=== PATIENT | female | born 1995 | race Caucasian/White ===

== ENCOUNTER → 2020-11-30 13:45 | Outpatient (BNVA) | payer SELFPAY | PROVIDERS: Family Provider Nurse Practitioner; Visit Provider Obstetrics & Gynecology | DX: Z12.4 Encounter for screening for malignant neoplasm of cervix (principal) | CPT/HCPCS: 88175 ==

== ENCOUNTER 2021-12-15 16:37 | Emergency (ER) | payer MEDICAID, SELFPAY ==
[2021-12-15 17:06] VITALS: BP 125/87; PULSE 64; RESP 18; TEMP 36.7; O2SAT 98; BMI 32.4
--- NOTE | 2021-12-15 17:22 | USR_ITS ---
PROCEDURE INFORMATION: Exam: US , Limited Exam date and time: 12/15/2021 5:22 PM Age: 26 years old Clinical indication: complicated by abdominal or pelvic pain; Lower; Second trimester (14 weeks 0 days to 27 weeks 6 days); Gestational age or lmp: 17 w 6 fritz; ; Additional info: Pelvic pain, 18 weeks TECHNIQUE: Imaging protocol: Real-time ultrasound of the maternal uterus with image documentation. Exam focused on the clinical indication. COMPARISON: US OB >14 Weeks [id number] 08/22/2018 9:32 AM FINDINGS: Gestation: Single intrauterine gestation. heart rate: 160 bpm. presentation: Transverse presentation. Placenta: Anterior grade 0 placenta. Amniotic fluid index: 11.3 cm. BIOMETRY: Estimated due date (AUA): 05/19/2022. Gestational age (AUA): 17 weeks 6 days Femur length (FL): 2.60 cm, MATERNAL: Cervix: The cervix is closed and measures 5.4 cm in length. There is some shadowing through the posterior cervix. US/US OB limited [id number] IMPRESSION: 1. Single viable intrauterine gestation estimated at 17 weeks 6 days. 2. No abnormality identified.
--- NOTE | 2021-12-15 17:23 | ED_ITS ---
HPI - Abdominal Pain General: Chief Complaint: Abdominal Pain Stated Complaint: 18 WKS PREG CRAMPING FOR PAST WK Time Seen by Provider: 12/15/21 17:13 History of Present Illness: 26-year-old female comes in today with pelvic pain and pressure for the last 5 days. Patient reports severe pain at times. Patient is 18 weeks . Patient denies any chronic medical problems. Patient takes no routine medications except vitamin. Patient denies any vaginal discharge or bleeding. Patient is had 2 other pregnancies with 2 live births. Related Data: Date of Last Menstrual Period: 08/09/21 Review of Systems GI: Reports: abdominal pain [facility] ED PFS: Medical History (Updated 12/15/21 @ 18:41 by CHARLIE Denny) No pertinent past medical history Patient denies history of: diabetes, asthma, hypertension, seizures, DVT/PE PCP: Uses Walk in services at [facility] Rhus dermatitis Rhus dermatitis Upper respiratory infection Surgical History No history of previous surgery Family History Family/Other Diabetes paternal aunt Thyroid condition cousin Father Hypertension Grandfather Hypertension maternal Heart disease maternal Mother Thyroid condition Denies family history of Colon cancer Ovarian cancer Hyperlipidemia Breast cancer Uterine cancer Stroke Social History Smoking and tobacco status: never smoked Alcohol intake: never Female Reproductive History: Date of last menstrual period: 08/09/21 Physical Exam Const: COMMON NORMALS: alert HENMT: COMMON NORMALS: normocephalic HEAD & SCALP: normocephalic Resp: COMMON NORMALS: normal respiratory effort and clear to auscultation bilaterally AUSCULTATION: clear to auscultation bilaterally Cardio: COMMON NORMALS: regular rate and regular rhythm RATE: regular rate RHYTHM: regular rhythm GI: COMMON NORMALS: Soft to palpation and non-tender AUSCULTATION: Yes normoactive bowel sounds PALPATION: Yes Soft to palpation : COMMON NORMALS: Yes no CVA tenderness BLADDER/KIDNEY EXAM: Yes no CVA tenderness Back/Pelvis: COMMON NORMALS: no CVA tenderness Extremity: COMMON NORMALS: normal to inspection and no pedal edema Neuro: SENSORIUM/ORIENTATION: Yes alert Psych: COMMON NORMALS: cooperative Skin: COMMON NORMALS: no rashes or lesions noted GENERAL SKIN EXAM: no rashes or lesions noted Course Vital Signs: Vital signs: Vital Signs Temperature 98.0 F 12/15/21 17:06 Pulse Rate 60 12/15/21 18:05 Respiratory Rate 14 12/15/21 18:05 Blood Pressure 121/90 12/15/21 18:05 Pulse Oximetry 100 12/15/21 18:05 MDM - Abdominal Pain Medical Decision Making 26-year-old female comes in today with concerns of pelvic pain for the last week. Patient reports intermittent worsening pain. Patient had 2 previous pregnancies and does not recall similar discomfort. Patient denies any abnormal bleeding or discharge. Patient's vital signs are normal. Respirations are even lungs are clear to auscultation. Differential diagnosis includes but not limited to threatened miscarriage, Wadena Mendez contractions, round ligament pain, UTI. Urinalysis was normal. Ultrasound noted single viable at around 17 weeks. Laboratory values were otherwise unremarkable. vascular technologist did note some Alejo Mendez-like contractions during evaluation. Reviewed exam with patient with recommendations for treatment and follow-up with primary care and [facility]. Patient reported understanding and agreed to plan. Lab Data : 12/15/21 18:40 12/15/21 18:40 Labs/Radiology: Radiology Impressions Obstetrics Ultrasound 12/15/21 17:22 IMPRESSION: 1. Single viable intrauterine gestation estimated at 17 weeks 6 days. 2. No abnormality identified. Laboratory Results WBC 6.1 10^3/uL (4.0-10.0) 12/15/21 18:40 RBC 4.22 10^6/uL (4.1-5.3) 12/15/21 18:40 Hgb 12.7 g/dL (11.5-15.3) 12/15/21 18:40 Hct 37.9 % (37.0-47.0) 12/15/21 18:40 MCV 89.8 fl (81-99) 12/15/21 18:40 MCH 30.1 pg (28.0-34.0) 12/15/21 18:40 MCHC 33.5 g/dL (30.0-36.0) 12/15/21 18:40 RDW 13.0 % (12.1-15.1) 12/15/21 18:40 Plt Count 272 10^3/cmm (130-400) 12/15/21 18:40 MPV 9.1 fL (7.4-10.4) 12/15/21 18:40 Neut % (Auto) 46.5 % 12/15/21 18:40 Lymph % (Auto) 41.1 % 12/15/21 18:40 [place] % (Auto) 9.8 % 12/15/21 18:40 Eos % (Auto) 1.8 % 12/15/21 18:40 Baso % (Auto) 0.5 % 12/15/21 18:40 Neut # (Auto) 2.84 10^3/uL (1.8-7.7) 12/15/21 18:40 Lymph # (Auto) 2.5 10^3/uL (0.8-4.8) 12/15/21 18:40 [place] # (Auto) 0.6 10^3/uL (0.2-0.9) 12/15/21 18:40 Eos # (Auto) 0.1 10^3/uL (0.0-0.8) 12/15/21 18:40 Baso # (Auto) 0.0 10^3/uL (0.0-0.1) 12/15/21 18:40 Nucleated RBC % (auto) 0 % 12/15/21 18:40 Nucleated RBCs # 0.0 /100WBC 12/15/21 18:40 Urine Color Straw (Yellow) 12/15/21 18:00 Urine Appearance Clear (CLEAR) 12/15/21 18:00 Urine pH 6.5 (5-7) 12/15/21 18:00 Ur Specific [place] 1.015 (1.005-1.030) 12/15/21 18:00 Urine Protein Neg (Negative) 12/15/21 18:00 Urine Glucose (UA) Norm (Normal) 12/15/21 18:00 Urine Ketones Negative (Negative) 12/15/21 18:00 Urine Blood Neg (Negative) 12/15/21 18:00 Urine Nitrate Negative (Negative) 12/15/21 18:00 Urine Bilirubin Neg (Negative) 12/15/21 18:00 Urine Urobilinogen Norm mg/dL (Negative) 12/15/21 18:00 Ur Leukocyte Esterase Negative (Negative) 12/15/21 18:00 Discharge Plan Discharge Patient Disposition: Home Clinical Impression: Alejo Chavez's contraction Condition: Stable Prescriptions: Discontinued norgestimate-ethinyl estradiol [Sprintec (28)] 0.25-35 mg-mcg tablet 1 tab PO DAILY Qty: 84 0RF dexamethasone sodium phosphate 10 mg/mL solution 10 mg IM ONCE Qty: 1 0RF methylprednisolone [Medrol (Brando)] 4 mg tablets,dose pack See Rx Instructions PO PER PKG DIR Qty: 21 0RF Rx Instructions: PO PER PKG DIR PO per package directions; amoxicillin-pot clavulanate [Augmentin] 875-125 mg tablet 1 tab PO BID 7 Days Qty: 14 0RF Discharge Orders: Discharge ED (Routine); Ordered 12/15/21 Ordered By: Jarad Quintanilla Discharge Diet: Usual diet Discharge Activity: Increase activity as tolerated Patient Instructions: Alejo Mendez Contractions (ED) Activity Restrictions/Additional Instructions: Home and rest. Drink plenty of water. Use warm packs or may be acetaminophen to help with pain and discomfort. Follow-up with [facility] for other instructions. Monitor for fever greater than 100.4, vaginal discharge or bleeding, or new concerns. Return to the ER if needed. Coding Level of Care Code ED Manager Basketball for Elizabeth Stubbs
[2021-12-15 18:05] VITALS: BP 121/90; PULSE 60; RESP 14; O2SAT 100
[2021-12-15 18:12] LABS: Add Urine Microscopic? NO; Charge for UA Resulting for Rev
[2021-12-15 18:16] LABS: Bilirubin Urine Neg (Negative); Blood Urine Neg (Negative); Glucose Urine UA Norm (Normal); Ketones Urine Negative (Negative); Leukocyte Esterase Urine Negative (Negative); Nitrate Urine Negative (Negative); Protein Urine Neg (Negative); Specific Gravity, Urine 1.015 (1.005-1.030); Urine Appearance Clear (CLEAR); Urine Color Straw (Yellow); Urobilinogen Urine Norm (Negative); pH Urine 6.5 (5-7)
[2021-12-15 18:47] LABS: Basophils % 0.5 %; Eosinophils # 0.1 10^3/uL (0.0-0.8); Eosinophils % 1.8 %; Hematocrit 37.9 % (37.0-47.0); Hemoglobin 12.7 g/dL (11.5-15.3); Lymphocytes # 2.5 10^3/uL (0.8-4.8); Lymphocytes % 41.1 %; Mean Corpuscular HGB Conc 33.5 g/dL (30.0-36.0); Mean Corpuscular Hemoglobin 30.1 pg (28.0-34.0); Mean Corpuscular Volume 89.8 fl (81-99); Mean Platelet Volume 9.1 fL (7.4-10.4); Monocytes # 0.6 10^3/uL (0.2-0.9); Monocytes % 9.8 %; Neutrophils # 2.84 10^3/uL (1.8-7.7); Neutrophils % 46.5 %; Nucleated Red Blood Cells % 0 %; Platelet Count 272 10^3/cmm (130-400); Red Blood Count 4.22 10^6/uL (4.1-5.3); White Blood Count 6.1 10^3/uL (4.0-10.0)
[2021-12-15 19:42] LABS: Alanine Aminotransferase 14 U/L (0-33); Albumin Level 3.4 g/dL (3.5-5.2); Alkaline Phosphatase 43 IU/L (35-105); Anion Gap 16.4 (5-19); Aspartate Amino Transferase 14 U/L (0-32); Blood Urea Nitrogen 9 mg/dL (6-20); Calcium 9.3 mg/dL (8.5-10.5); Carbon Dioxide 22 mmol/L (22-29); Chloride 101 mmol/L (98-107); Globulin 3.2 g/dL (1.3-4.6); Glomerular Filtration Rate 190.1 mL/min (90-130); Glucose 70 mg/dL (65-115); Osmolality Calculated 277 mOsm/kg (285-295); Potassium 4.4 mmol/L (3.5-5.1); Sodium 135 mmol/L (136-145); Total Bilirubin 0.2 mg/dL (0.15-1.2); Total Protein 6.6 g/dL (6.6-8.7)
== END 2021-12-15 18:48 | disposition home or self-care (01) ==
PROVIDERS: Emergency Provider Nurse Practitioner Family
DX: O47.02 False labor before 37 completed weeks of gestation, second trimester (principal); Z3A.18 18 weeks gestation of pregnancy
CPT/HCPCS: 76815; 80053; 81003; 84702; 85025; 86900; 99282

== ENCOUNTER → 2023-03-21 10:32 | Outpatient (BNVA) | payer MEDICAID, SELFPAY | PROVIDERS: PCP Registered Nurse; Visit Provider Registered Nurse | DX: E66.9 Obesity, unspecified (principal); R73.9 Hyperglycemia, unspecified | CPT/HCPCS: 80053; 83036 ==